=== PATIENT | female | born 1970 | race Caucasian/White ===

== ENCOUNTER 2021-05-22 23:42 | Emergency (ER) | payer BC ==
[~2021-05-22] VITALS: Ht 154.9 cm; Wt 74.8 kg
[2021-05-22 23:55] VITALS: BP_SYST 151
[2021-05-23] MEDS ORDERED: CEPH500C2 PO ×2 (00:27→00:29)
[2021-05-23] MEDS ORDERED: IBUP-1971 PO ×2 (00:27→00:29)
[2021-05-23] MEDS ORDERED: KETOROLAC TROMETHAMINE 60 MG/2 ML VIAL IM ONE (00:30)
[2021-05-23] MEDS ORDERED: cephALEXin 500 MG CAPSULE PO ONE (00:30)
[2021-05-23 00:55] VITALS: BP_SYST 151
== END 2021-05-23 00:55 | disposition home or self-care (01) ==
LOC: SED 23:42
DX: L03.211 Cellulitis of face (principal); Z88.5 Allergy status to narcotic agent; Z79.899 Other long term (current) drug therapy
CPT/HCPCS: 96372; 99283; J1885